=== PATIENT | male | born 1985 ===

== ENCOUNTER 2017-04-03 07:19 | Day surgery (SDC) | payer MEDICARE, OTHER ==
[2017-04-03 08:17] VITALS: BMI 20.7
[2017-04-03 08:45] VITALS: O2SAT 100
[2017-04-03] MEDS ORDERED: Propofol 10 mg/ml Inj (20 ML) ONE ×2 (08:58→09:18)
[2017-04-03] MEDS ORDERED: Lidocaine Hydrochloride 5 ML INJ ONE (08:58)
[2017-04-03 10:09] VITALS: PULSE 49
[2017-04-03 10:38] VITALS: BP 108/76; RESP 14
[2017-04-03 10:40] VITALS: TEMP 97
== END 2017-04-03 10:35 | disposition home or self-care (01) ==
LOC: C.ENDO 07:19
PROVIDERS: ATTEND Internal Medicine
DX: K29.50 Unspecified chronic gastritis without bleeding (principal); R19.8 Other specified symptoms and signs involving the digestive system and abdomen; R63.4 Abnormal weight loss; K29.80 Duodenitis without bleeding; K52.9 Noninfective gastroenteritis and colitis, unspecified
CPT/HCPCS: 43239; 45380; 88305; 88313; 88342; J2704; J3010

== ENCOUNTER 2017-09-27 08:02 | Day surgery (SDC) | payer MEDICARE, OTHER ==
[2017-09-27] MEDS ORDERED: Lactated Ringer's 1,000 ML IV ONE (12:10)
[2017-09-27] MEDS ORDERED: Sodium Chloride 0.9% 1,000 ML IV ONE (12:10)
[2017-09-27] MEDS ORDERED: Midazolam 2 MG/2 ML VIAL ONE ×2 (12:11→12:21)
[2017-09-27] MEDS ORDERED: Propofol 10 mg/ml Inj (20 ML) ONE ×2 (12:11→12:40)
[2017-09-27] MEDS ORDERED: Lidocaine 1% Inj (20ml) ONE (12:11)
[2017-09-27] MEDS ORDERED: ceFAZolin IV 1 gm in Dextrose 1 GM/50 ML BAG IVPB ONE (12:11)
[2017-09-27] MEDS ORDERED: Bupivacaine-Epi 0.5%-1:200,000 PF Inj IJ ONE (12:16)
--- NOTE | 2017-09-27 13:24 | PCM.SURG1 ---
Surgeon's Initial Post Op Note - Surgeon's Notes Surgeon: Dr. Busch Manager Laboratory: Rajinder Brito PGY2 Type of Anesthesia: General LMA Pre-Operative Diagnosis: L chest lipoma Operative Findings: 10cm lipoma Post-Operative Diagnosis: Same Operation Performed: removal of lipoma Specimen/Specimens Removed: lipoma 10cm x4cm Estimated Blood Loss: EBL {In ML}: 5 Blood Products Given: N/A Drains Used: No Drains Post-Op Condition: Good Date of Surgery/Procedure: 09/27/17 Time of Surgery/Procedure: 13:25
[2017-09-27 14:23] VITALS: TEMP 97.8
[2017-09-27 14:51] VITALS: BP 122/91; PULSE 109; RESP 13; O2SAT 99
--- NOTE | 2017-09-27 23:31 | OP ---
PROCEDURE DATE: 09/27/2017 PREOPERATIVE DIAGNOSIS: Lipoma, chest wall. POSTOPERATIVE DIAGNOSIS: Lipoma, chest wall. PROCEDURE: Excision of 10 cm lipoma, left chest wall. SURGEON: Levy Hou Jr., MD. DRY CELL SEALER: Dr. Rajinder Brito. ANESTHESIA ADMINISTERED BY: INDICATION: The patient is a young man with history of variety of medical problems who has a large lipoma on his chest wall, slightly amorphous in appearance and feel. OPERATIVE FINDINGS: General anesthesia induced, antibiotics were given, standard skin prep. The area was confirmed with the patient prior to initiating the procedure. I made an incision directly over it. Dissected it out as well as a lot of tributaries and then closed the wound with multiple layer closure and subcuticular closure on the skin. Blood loss was less than 10 mL. Levy Hou Jr., MD
== END 2017-09-27 14:27 | disposition home or self-care (01) ==
LOC: C.SDS 08:02
PROVIDERS: ATTEND Surgery Vascular Surgery
DX: D17.1 Benign lipomatous neoplasm of skin and subcutaneous tissue of trunk (principal); I10 Essential (primary) hypertension
CPT/HCPCS: 11406; 12034; 88304; J0690; J2250; J2704; J3010; J7040